=== PATIENT | female | born 1995 | race African-American/Black ===

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

== ENCOUNTER 2017-12-20 13:56 | Emergency (ER) | payer OTHER ==
[~2017-12-20] VITALS: Ht 170.2 cm; Wt 58.1 kg
[~2017-12-20 13:56] MED LIST: AUGMENTIN 875-1 EAC1 ORAL; IBUPROFEN600 MG ORAL
[2017-12-20 14:06] VITALS: BP 134/82
--- NOTE | 2017-12-20 14:21 | Emergency Room Report ---
History of Present Illness General Chief Complaint: Female Urogenital Problems Source: Patient Present Illness HPI 22-year-old female patient presents ER complaining of itching white vaginal discharge for the past 4 days. Denies dysuria, hematuria, frequency, urgency. Denies recent sexual activity. Reports last menstrual period was 2 weeks ago and normal for her. Denies fever, chest pain, shortness of breath, abdominal pain, flank pain, vomiting. Denies foul smelling odor. Reports "I think I have a yeast infection". Mother states she has not taken any [id number] medications because she is a virgin. Denies pelvic rash or lesions. Allergies: Coded Allergies: No Known Allergies (Unverified , 09/06/16) Patient History Past Medical History: see triage record Last Menstrual Period: 12/06/17 Reviewed Nursing Documentation: PMH: Agreed; PSxH: Agreed Nursing Documentation-PMH Past Medical History: No Stated History Review of Systems All Other Systems: negative except mentioned in HPI Physical Exam Vital Signs Date Time Temp Pulse Resp B/P (MAP) Pulse Ox O2 Delivery O2 Flow Rate FiO2 12/20/17 14:06 98.2 99 18 134/82 97 Room Air 98.2 Sp02 EP Interpretation: reviewed, normal General Appearance: well appearing, no apparent distress, alert, GCS 15, non- toxic Head: normocephalic, atraumatic Eyes: bilateral eye normal inspection, bilateral eye PERRL ENT: hearing grossly normal, normal pharynx, no angioedema, normal voice, uvula midline, moist mucus membranes Neck: full range of motion Respiratory: lungs clear, normal breath sounds, no rhonchi, no respiratory distress, no accessory muscle use, no wheezing, speaking full sentences Cardiovascular #1: regular rate, rhythm, no edema Gastrointestinal: non tender, soft, no mass, non-distended, no guarding, no rebound Genitourinary: no CVA tenderness, deferred Musculoskeletal: back normal, digits/nails normal, gait/station normal, normal range of motion, non-tender Neurologic: alert, oriented x3, responsive, motor strength/tone normal, sensory intact Psychiatric: mood/affect normal Skin: no rash Medical Decision Making PA Attestation Dr. Josue is my supervising Physician whom patient management has been discussed with. Diagnostic Impression: Primary Impression: Yeast infection Additional Impression: Urinary tract infection ER Course Pt presents to ED c/o vaginal discharge. DDX considered but are not limited to cystitis, pyelonephritis, STI, vaginitis, , yeast infection, bacterial vaginosis. VITAL SIGNS are WNL, patient is afebrile. Ordered UA. ER COURSE history consistent with yeast infection, will provide single dose of fluconazole in the ER. UA results show WBCs and bacteria, 2+ leukocyte esterase, indicate possible UTI , will treat with abx. urine negative. Discuss results with patient. If concern for STI, followup with STI clinic for testing and treatment. Denies STI concern. follow-up with primary care provider and discuss referral to [facility] as needed. Patient is resting comfortably in chair, nontoxic appearing, in no acute distress. Patient states they feel better and is ready to go home. DISCHARGE -Rx provided for Keflex Patient is stable for discharge. Patient resting comfortably, in no acute distress, nontoxic appearing, talking without difficulty. Will provide with patient care instructions and any necessary prescriptions. Patient understands and agrees to treatment plan. Patient encouraged to drink plenty of fluids. Patient to take medication as instructed. Care plan and follow-up instructions provided. Patient questions asked and answered. Reports understanding and agreement to treatment plan. Patient instructed to follow-up with primary care provider in 3 - 5 days. ER precautions given. Patient instructed to return to ER immediately for any new or worsening of symptoms. Including but not limited to fever, abdominal pain , intractable vomiting. - Please note that this Emergency Department Report was dictated using Wooshiiinsulator helper technology software, occasionally this can lead to erroneous entry secondary to interpretation by the dictation equipment. Labs Test 12/20/17 14:20 Urine Color Yellow Urine Appearance Turbid Urine pH 6 (4.5-8.0) Urine Specific [place] 1.020 (1.005-1.035) Urine Protein 3+ (NEGATIVE) Urine Glucose (UA) Negative (NEGATIVE) Urine Ketones 1+ (NEGATIVE) Urine Occult Blood 2+ (NEGATIVE) Urine Nitrite Negative (NEGATIVE) Urine Bilirubin Negative (NEGATIVE) Urine Urobilinogen 1 MG/DL (0.0-1.0) Urine Leukocyte Esterase 2+ (NEGATIVE) Urine RBC 2-4 /HPF (0 - 2) Urine WBC 5-10 /HPF (0 - 2) Urine Squamous Epithelial Cells Many /LPF (NONE/OCC) Urine Bacteria Moderate /HPF (NONE) Urine HCG, Qualitative Negative (NEGATIVE) Last Vital Signs Date Time Temp Pulse Resp B/P (MAP) Pulse Ox O2 Delivery O2 Flow Rate FiO2 12/20/17 14:06 98.2 99 18 134/82 97 Room Air 98.2 Disposition: HOME, SELF-CARE Condition: Stable Scripts Cephalexin* (KEFLEX*) 500 Mg Capsule 500 MG ORAL EVERY 12 HOURS, #14 CAP 0 Refills Prov: Maged Rocha 12/20/17 Patient Instructions: Vaginal Yeast Infection, Adult, Urinary Tract Infection Additional Instructions: Followup with primary care provider and followup with and/or OBGYN. Drink plenty of fluids. Patient questions asked and answered. ER precautions given, patient instructed to return to ER immediately for any new or worsening of symptoms. Maged Rocha Dec 20, 2017 14:21
[2017-12-20] MEDS ORDERED: Fluconazole 100mg tab ORAL ONE (14:30)
[2017-12-20 14:32] LABS: APPEARANCE,URINE TURBID; BILIRUBIN, URINE NEGATIVE (NEGATIVE); GLUCOSE, URINE (UA) NEGATIVE (NEGATIVE); KETONES,URINE 1+ (NEGATIVE); LEUKOCYTE ESTERASE ,URINE 2+ (NEGATIVE); NITRITE,URINE NEGATIVE (NEGATIVE); PH,URINE 6 (4.5-8.0); PROTEIN,URINE 3+ (NEGATIVE); UROBILINOGEN,URINE 1 MG/DL (0.0-1.0)
[2017-12-20 14:37] LABS: COLOR,URINE YELLOW
[2017-12-20] MEDS ORDERED: CEPHALEXIN500 MG ORAL (15:05)
[2017-12-20 15:22] VITALS: BP 134/82
== END 2017-12-20 15:22 | disposition home or self-care (01) ==
LOC: EMR 14:36
DX: B37.41 Candidal cystitis and urethritis (principal)
CPT/HCPCS: 81003; 81025; 87086; 99283

== ENCOUNTER → 2018-03-14 | Emergency (ER) | payer OTHER ==
[~2018-03-14] VITALS: Ht 170.2 cm; Wt 58.1 kg
[~2018-03-14] MED LIST changes: +CEPHALEXIN500 MG ORAL; +CLARITIN-D 241 EACH PO; +FLUTICASONE PRO16 G1 NASAL
[2018-03-14 17:11] VITALS: BP 130/86
--- NOTE | 2018-03-14 17:25 | Emergency Room Report ---
History of Present Illness General Chief Complaint: Earache Source: Patient Present Illness HPI 22-year-old female patient presents ER complaining of bilateral earache for the past 2 days. Patient denies ear pain or drainage. Reports ear "fullness". Reports runny nose and congestion during this time. Denies hearing loss. Denies fever, chest pain, shortness of breath. Denies recent swimming. Denies using Q -tips. states that she attempted to take Sudafed for a few days which "did not work". Denies sore throat, cough, vomiting. Allergies: Coded Allergies: No Known Allergies (Unverified , 09/06/16) Patient History Past Medical History: see triage record Last Menstrual Period: 02/28 Now: No Reviewed Nursing Documentation: PMH: Agreed; PSxH: Agreed Nursing Documentation-PMH Past Medical History: No Stated History Review of Systems All Other Systems: negative except mentioned in HPI Physical Exam Vital Signs Date Time Temp Pulse Resp B/P (MAP) Pulse Ox O2 Delivery O2 Flow Rate FiO2 03/14/18 17:11 98.4 97 20 130/86 98 Room Air Sp02 EP Interpretation: reviewed, normal General Appearance: well appearing, no apparent distress, alert, GCS 15, non- toxic Head: normocephalic, atraumatic Eyes: bilateral eye normal inspection, bilateral eye PERRL ENT: hearing grossly normal, normal pharynx, no angioedema, normal voice, TMs + canals normal, uvula midline, moist mucus membranes, nasal congestion Neck: full range of motion Respiratory: lungs clear, normal breath sounds, no rhonchi, no respiratory distress, no accessory muscle use, no wheezing, speaking full sentences Cardiovascular #1: regular rate, rhythm, no edema Musculoskeletal: back normal, digits/nails normal, gait/station normal, normal range of motion, non-tender Neurologic: alert, oriented x3, responsive, motor strength/tone normal, sensory intact Psychiatric: mood/affect normal Skin: no rash Lymphatic: no adenopathy Medical Decision Making PA Attestation Dr. Meredith is my supervising Physician whom patient management has been discussed with. Diagnostic Impression: Primary Impression: Ear fullness ER Course Pt presents to ED c/o ear fullness bilaterally. DDX considered but are not limited to rhinitis, sinusitis, otitis media, otitis externa, cellulitis, mastoiditis, cerumen impaction. Low suspicion for mastoiditis, no swelling or erythema noted posterior to ear, no TTP. VITAL SIGNS are WNL, patient is afebrile. ORDERS: none required at this time, diagnosis is clinical ED INTERVENTIONS: physical exam benign, nonerythematous TM, TM rupture, no pain with ear pulling, no signs of otitis media or externa. Symptoms likely related to congestion symptom possible eustachian tube dysfunction. Will provide patient with Claritin and Flonase to help with congestion symptoms. ER precautions given. Suggested patient follow-up with primary care provider to discuss referral to ENT specialist. DISCHARGE: -Rx provided for Claritin-D -Rx provided for Flonase At this time pt is stable for d/c to home. resting comfortably chest, nontoxic appearing. Patient to take medications as instructed Will provide with patient care instructions and any necessary prescriptions. Care plan and follow-up instructions provided. Patient instructed to follow-up with primary care in 3 - 5 days. Patient provided with list of clinics to establish care if unable to contact current PCP. Patient questions asked and answered. ER precautions given. Patient instructed to return to ER immediately for any new or worsening of symptoms including but not limited to increasing SOB, persistent fever. - Please note that this Emergency Department Report was dictated using Aracashort[employer] worker technology software, occasionally this can lead to erroneous entry secondary to interpretation by the dictation equipment. Last Vital Signs Date Time Temp Pulse Resp B/P (MAP) Pulse Ox O2 Delivery O2 Flow Rate FiO2 03/14/18 17:11 98.4 97 20 130/86 98 Room Air Disposition: HOME, SELF-CARE Condition: Stable Scripts Fluticasone Propionate* (FLUTICASONE PROPIONATE*) 16 Gm [place].susp 1 SPRAY NASAL TWICE A DAY, #16 GM Prov: Maged Rocha P.A. 03/14/18 Loratadine/Pseudoephedrine (CLARITIN-D 24 HOUR TABLET) 1 Each Tab.er.24h 1 TAB PO DAILY, #24 TAB Prov: Maged Rocha P.A. 03/14/18 Patient Instructions: Earache Additional Instructions: Followup with primary care provider in 3 -5 days. Discuss referral to ENT specialist due to hx of ear infections and earache. Take medications as directed. Patient questions asked and answered. ER precautions given, patient instructed to return to ER immediately for any new or worsening of symptoms. Maged Rocha Mar 14, 2018 17:25
== END | disposition home or self-care (01) ==
LOC: EMR 17:23
DX: H92.03 Otalgia, bilateral (principal)
CPT/HCPCS: 99283

== ENCOUNTER 2018-04-10 22:43 | Emergency (ER) | payer OTHER ==
[~2018-04-10] VITALS: Ht 170.2 cm; Wt 58.1 kg
[2018-04-10 23:00] VITALS: BP 145/89
[2018-04-10] MEDS ORDERED: DEBROX15 M1 RIGHT EAR (23:51)
[2018-04-11 00:10] VITALS: BP 138/78
--- NOTE | 2018-04-11 05:50 | Emergency Room Report ---
History of Present Illness General Chief Complaint: Earache Source: Patient Present Illness HPI 22-year-old female presents ED for evaluation. Complaining of right ear pain times one week. Dull, 8 out of 10, nonradiating. States her ear feels "clogged ". Denies fevers or chills. Denies cough. Denies sick contacts or recent travel. Denies sore throat. No other aggravating relieving factors. Denies any other associated symptoms Allergies: Coded Allergies: No Known Allergies (Unverified , 09/06/16) Patient History Past Medical History: none Past Surgical History: none Pertinent Family History: none Social History: Denies: smoking, alcohol use, drug use Last Menstrual Period: mar 14, 2018 Now: No Immunizations: UTD Reviewed Nursing Documentation: PMH: Agreed; PSxH: Agreed Nursing Documentation-PMH Past Medical History: No Stated History Review of Systems All Other Systems: negative except mentioned in HPI Physical Exam Vital Signs Date Time Temp Pulse Resp B/P (MAP) Pulse Ox O2 Delivery O2 Flow Rate FiO2 04/10/18 22:53 98.8 90 16 139/87 100 Room Air Sp02 EP Interpretation: reviewed, normal General Appearance: no apparent distress, alert, GCS 15, non-toxic Head: normocephalic Eyes: bilateral eye normal inspection, bilateral eye PERRL ENT: hearing grossly normal, normal pharynx, no angioedema, normal voice, other - R ear canal with cerumen impaction, unable to visualize R TM Neck: full range of motion, supple/symm/no masses Respiratory: normal inspection Cardiovascular #1: normal inspection Gastrointestinal: normal inspection Rectal: deferred Genitourinary: no CVA tenderness Musculoskeletal: normal inspection Neurologic: alert, oriented x3, responsive, motor strength/tone normal, sensory intact, speech normal Psychiatric: normal inspection Skin: normal inspection Lymphatic: normal inspection Medical Decision Making Diagnostic Impression: Primary Impression: Cerumen impaction Qualified Codes: H61.21 - Impacted cerumen, right ear ER Course Hospital Course 22-year-old M presents to ED with pain R ear. no fever. Differential diagnoses include: TM perforation, otitis externa, otitis media Clinical course Patient placed on stretcher. After initial history, physical exam reveals a female in no acute distress. Right ear canal obscured by cerumen. Unable to visualize TM. Remainder physical exam unremarkable Discussed findings with patient. We will discharge with debrox to soften the wax in her ear. Recommend close follow-up with PMD to reevaluate the ear Diagnosis - otitis media Stable and discharged to home with Rx Carbamide peroxide. Followup with PMD. Return to ED if symptoms recur or worsen Last Vital Signs Date Time Temp Pulse Resp B/P (MAP) Pulse Ox O2 Delivery O2 Flow Rate FiO2 04/11/18 00:10 97.8 77 17 138/78 100 Room Air Status: improved Disposition: HOME, SELF-CARE Condition: Stable Scripts Carbamide Peroxide (DEBROX) 15 Ml Drops 5 DROP RIGHT EAR TWICE A DAY for 4 Days, ML 0 Refills Prov: Rick Josue MD 04/10/18 Referrals: BARBARA TURNER,REFERRING (PCP) Patient Instructions: Cerumen Impaction Rick Josue MD Apr 11, 2018 05:50
== END 2018-04-11 00:10 | disposition home or self-care (01) ==
LOC: EMR 23:16
DX: H61.21 Impacted cerumen, right ear (principal); H66.91 Otitis media, unspecified, right ear
CPT/HCPCS: 99282